=== PATIENT | female | born 1960 ===

== ENCOUNTER 2019-06-08 16:13 | Emergency (ER) | payer OTHER ==
[~2019-06-08] VITALS: Ht 167.6 cm; Wt 70.3 kg
[2019-06-08] MEDS ORDERED: LISINOPRIL20 MG (17:01)
[2019-06-08] MEDS ORDERED: GLUCOPHAGE XR750 MG (17:01)
[2019-06-08] MEDS ORDERED: CYCLOBENZAPRINE10 MG PO (18:54)
[2019-06-08] MEDS ORDERED: KETO10TA2 PO (18:54)
[2019-06-08] MEDS ORDERED: ORPHENADRINE C100 MG PO (18:54)
== END 2019-06-08 19:27 | disposition home or self-care (01) ==
LOC: ER 16:13
DX: M75.52 Bursitis of left shoulder (principal)